=== PATIENT | female | born 1970 | race Two or more races ===

== ENCOUNTER 2022-06-22 01:54 | Inpatient (IN) | payer OTHER, MEDICAID ==
[~2022-06-22] VITALS: Ht 160 cm; Wt 129.3 kg
[2022-06-22] MEDS ORDERED: ALBUTEROL SULFATE/IPRATROPIU 3 ML SOL IH ONE ×2 (02:00→03:05)
--- NOTE | 2022-06-22 02:07 | NUR ---
LAB AT BEDSIDE
--- NOTE | 2022-06-22 02:07 | NUR ---
RAD AT BEDSIDE
--- NOTE | 2022-06-22 02:08 | NUR ---
SWABS COLLECTED AND HANDED TO LAB
[2022-06-22 02:15] LABS: BASOPHILS # (AUTO) 0.1 K/uL (0.00-0.22); BASOPHILS % (AUTO) 0.8 % (0.0-2.0); EOSINOPHILS # (AUTO) 0.1 K/uL (0-0.4); HEMATOCRIT 43.9 % (36-48); HEMOGLOBIN 14.3 g/dL (12.0-16.0); LYMPHOCYTES # (AUTO) 2.7 K/uL (2.5-16.5); LYMPHOCYTES % (AUTO) 18.4 % (20.5-51.1); MEAN CORPUSCULAR HEMOGLOBIN 27 pg (27-31); MEAN CORPUSCULAR HGB CONC 33 g/dL (33-37); MEAN CORPUSCULAR VOLUME 82.9 fL (80-94); MONOCYTES # (AUTO) 0.7 K/uL (0.8-1.0); MONOCYTES % (AUTO) 4.6 % (1.7-9.3); NEUTROPHILS # (AUTO) 11.2 K/uL (1.8-7.7); NEUTROPHILS % (AUTO) 75.2 % (42.2-75.2); PLATELET COUNT (AUTO) 334 K/uL (140-450); RED CELL DISTRIBUTION WIDTH 18.1 % (11.6-13.7); WHITE BLOOD COUNT (AUTO) 14.9 K/uL (4.8-10.8)
[2022-06-22 02:16] VITALS: BP 178/111
--- NOTE | 2022-06-22 02:26 | NUR ---
RT AT BEDSIDE
[2022-06-22 02:36] LABS: ALBUMIN 3.4 g/dL (3.4-5.0); ANION GAP 17.1 (8-16); CARBON DIOXIDE 23.5 mmol/L (21-32); CREATININE 1.3 mg/dL (0.6-1.3); POTASSIUM 3.6 mmol/L (3.5-5.1); TOTAL BILIRUBIN 0.5 mg/dL (0.0-1.0)
--- NOTE | 2022-06-22 02:58 | NUR ---
51/F BIB FROM [facility] C/C SOB AND CP X1 HR. +CONGESTION +COUGH PMHX: ASTHMA, CAD, CHF, GERD, GLAUCOMA, HTN, HYPERCHOLESTEROLEMIA, HYPOTHYROIDISM, MAJOR DEPRESSION, OBSTRUCTIVE SLEEP APNEA ALLERGIES: BACTRIM, DRONABINOL, DULOXETINE, MORPHINE, SULFAMETHOXAZOLE, THRIMETHOPRIM, ZOFRAN, AGATA, CYMBALTA
[2022-06-22] MEDS ORDERED: AZITHROMYCIN 500 MG in DEXTROSE 5% 250 ML IV ONE (03:05)
[2022-06-22] MEDS ORDERED: methylPREDNISolone SS 125 MG/2 ML VIAL IVP ONE (03:05)
[2022-06-22] MEDS ORDERED: cefTRIAXone 1,000 MG VIAL ONE (03:10)
--- NOTE | 2022-06-22 03:25 | NUR ---
RT AT BEDSIDE
--- NOTE | 2022-06-22 03:25 | NUR ---
PATIENT REMOVED FROM OXYGEN. CURRENTLY ROOM AIR SAT 95%. ERMHien NIA MADE AWARE.
[2022-06-22] MEDS ORDERED: AZITHROMYCIN 500 MG INJ VIAL IV ONE (03:30)
--- NOTE | 2022-06-22 03:44 | NUR ---
PT AMBULATED TO RR
--- NOTE | 2022-06-22 04:02 | NUR ---
PATIENT STATED THAT SHE FELT NAUSEATED AFTER SPITTING UP CONGESTION SECREATIONS. MALVIN KRAMER MADE AWARE.
[2022-06-22] MEDS ORDERED: METOCLOPRAMIDE 10 MG/2 ML INJ VIAL IVP ONE (04:05)
--- NOTE | 2022-06-22 04:05 | NUR ---
MED REC COMPLETED
--- NOTE | 2022-06-22 04:35 | NUR ---
PT TO BED 9
--- NOTE | 2022-06-22 05:41 | NUR ---
Patient will be admitted to care of MD GREGORIO. Admited to TELEMETRY. Will go to room 104A. Belongings list completed. Report to NESSA THOMAS. TRANSFER OF CARE
--- NOTE | 2022-06-22 06:00 | NUR ---
RECEIVED PATIENT FROM ER VIA YOLANDA, PT IS AOX4, NO DISTRESS NOTED
[2022-06-22] MEDS ORDERED: POTASSIUM CHLORIDE 10 MEQ TABER PO PRN (07:45)
[2022-06-22] MEDS ORDERED: DOCUSATE SODIUM 100 MG GELCAP PO PRN (07:45)
[2022-06-22] MEDS ORDERED: ZOLPIDEM 5 MG TAB PO PRN (07:45)
[2022-06-22] MEDS ORDERED: guaiFENesin DM 200/20 MG-10 ML 10 ML UDC PO PRN (07:45)
[2022-06-22] MEDS ORDERED: ALBUTEROL SULFATE/IPRATROPIU 3 ML SOL IH PRN (07:55)
[2022-06-22 08:00] VITALS: BP 115/67
[2022-06-22 08:50] LABS: ANION GAP 15.3 (8-16); CARBON DIOXIDE 24.6 mmol/L (21-32); CREATININE 1.1 mg/dL (0.6-1.3); POTASSIUM 3.9 mmol/L (3.5-5.1)
[2022-06-22 08:52] LABS: BASOPHILS % (AUTO) 0.3 % (0.0-2.0); EOSINOPHILS % (AUTO) 0.1 % (0.0-4.0); HEMATOCRIT 40.5 % (36-48); HEMOGLOBIN 13.2 g/dL (12.0-16.0); LYMPHOCYTES # (AUTO) 0.6 K/uL (2.5-16.5); LYMPHOCYTES % (AUTO) 4.4 % (20.5-51.1); MEAN CORPUSCULAR HEMOGLOBIN 27 pg (27-31); MEAN CORPUSCULAR HGB CONC 33 g/dL (33-37); MEAN CORPUSCULAR VOLUME 82.7 fL (80-94); MONOCYTES # (AUTO) 0.1 K/uL (0.8-1.0); MONOCYTES % (AUTO) 0.8 % (1.7-9.3); NEUTROPHILS # (AUTO) 12.9 K/uL (1.8-7.7); NEUTROPHILS % (AUTO) 94.4 % (42.2-75.2); PLATELET COUNT (AUTO) 274 K/uL (140-450); RED CELL DISTRIBUTION WIDTH 17.9 % (11.6-13.7); WHITE BLOOD COUNT (AUTO) 13.7 K/uL (4.8-10.8)
[2022-06-22 09:04] LABS: CHOL/HDL RATIO 2.1 (1-4.5); MAGNESIUM 1.8 mg/dL (1.8-2.4); PHOSPHORUS 3.6 mg/dL (2.5-4.9); THYROID STIMULATING HORMONE 1.87 uIU/mL (0.34-3.74)
[2022-06-22] MEDS: FUROSEMIDE 40 MG/4 ML VIAL IVP SCH (09:12)
[2022-06-22] MEDS: ACETAMINOPHEN 325 MG TAB PO PRN ×2 (09:19→22:07)
[2022-06-22 09:27] LABS: ANION GAP 17.8 (8-16); CARBON DIOXIDE 22.7 mmol/L (21-32); CREATININE 1.3 mg/dL (0.6-1.3); POTASSIUM 3.5 mmol/L (3.5-5.1)
--- NOTE | 2022-06-22 10:32 | NUR ---
PATIENT HAS BEEN SCREENED AND CATEGORIZED MODERATE NUTRITION RISK. PATIENT WILL BE SEEN WITHIN 3-5 DAYS OF ADMISSION. REVIEWED BY SUKI BELLO RD
[2022-06-22] MEDS ORDERED: METOCLOPRAMIDE 10 MG/2 ML INJ VIAL IVP PRN (11:55)
[2022-06-22] MEDS ORDERED: ISOSORBIDE MONONITRATE 30 MG TABER PO SCH (11:55)
[2022-06-22] MEDS ORDERED: carvediloL 12.5 MG TAB PO SCH (11:55)
[2022-06-22] MEDS: ECOTRIN 81 MG TABEC PO SCH (11:55)
[2022-06-22 12:00] VITALS: BP 133/78
[2022-06-22] MEDS ORDERED: hydrALAZINE 10 MG TAB PO SCH (13:00)
[2022-06-22 16:00] VITALS: BP 108/61
[2022-06-22] MEDS ORDERED: hydrALAZINE 25 MG TAB PO PRN (16:25)
--- NOTE | 2022-06-22 17:41 | NUR ---
P.T. NOTES P.T. EVAL COMPLETED; REFER TO EVAL FOR DETAILS.
[2022-06-22 19:00] LABS: APPEARANCE,URINE SL CLOUDY (CLEAR); BILIRUBIN,URINE NEGATIVE (NEGATIVE); BLOOD, URINE TRACE-I (NEGATIVE); COLOR,URINE YELLOW (YELLOW); LEUKOCYTE ESTERASE ,URINE 2+ (NEGATIVE); NITRITE, URINE NEGATIVE (NEGATIVE); PH,URINE 7.5 (5.0-9.0); UGLUCOSE NEGATIVE (NEGATIVE)
[2022-06-22 19:22] LABS: RBC,URINE 0-5 /HPF (0-5)
[2022-06-22 19:23] LABS: CALCIUM OXALATE CRYSTALS,UR 0-10 /HPF (None Seen)
--- NOTE | 2022-06-22 19:26 | NUR ---
ENDORSE PATIENT IN STABLE CONDITION TO PM SHIFT NURSE WITH NO ACUTE DISTRESS NOTED. PATIENT ADMIT FOR CHEST PAIN/TIGHTNESS WITH SOB, DIAGNOSIS WITH PNA WITH ASTHMA EXACERBATION. PIV AT R. AC SALINE LOCK.
[2022-06-22 19:29] LABS: BARBITURATE, URINE NEGATIVE ng/ml (NEG <=200); BENZODIAZEPINE, URINE NEGATIVE ng/mL (NEG <=200); CANNABINOID, URINE NEGATIVE ng/mL (NEG <=50); COCAINE, URINE NEGATIVE ng/mL (NEG <=300); OPIATE, URINE NEGATIVE ng/mL (NEG <=2000); PHENCYCLIDINE SCREEN,URINE NEGATIVE ng/mL (NEG <=25)
--- NOTE | 2022-06-22 19:30 | NUR ---
RECEIVED PATIENT LYING ON THE BED, PATIENT IS ALERT AND ORIENTED X4, NO SIGNS OF PAIN NOTED, NO SIGNS OF DISTRESS, IV ACCESS SITE ON RIGHT AC, FLUSH WITHOUT RESISTANCE, CALL LIGHT WITHIN REACH.
--- NOTE | 2022-06-22 19:53 | NUR ---
RECEIVED REPORT FROM AM SHIFT. PATIENT WAS SEEN AND ASSESSED. PATIENT IS ON ROOM AIR WITH SPO2 95%. NOTICED ADEQUATE BILATERAL CHEST RISE AND FALL. PATIENT IS IN NO RESPIRATORY DISTRESS AT THIS TIME. BILATERAL BREATH SOUNDS ON AUSCULTATION; UPPER LOBES: CLEAR AND LOWER LOBES: CLEAR. PRN TX NOT INDICATED AT THIS TIME. PATIENT WAS INFORMED TO CALL RN OR RT WHEN EXPERIENCING SOB OR WHEN WHEEZING. WILL CONTINUE TO MONITOR PATIENT.
[2022-06-22 20:00] VITALS: BP 125/72
[2022-06-22] MEDS ORDERED: cefTRIAXone 2,000 MG in DEXTROSE 5% 100 ML IV SCH (20:00)
[2022-06-22] MEDS: carvediloL 6.25 MG TAB PO SCH (20:23)
[2022-06-22] MEDS: VALSARTAN 80 MG TAB PO SCH (20:24)
[2022-06-22] MEDS: GABAPENTIN 300 MG CAP PO SCH (20:24)
[2022-06-22] MEDS: buPROPion 150 MG TABER PO SCH (20:29)
[2022-06-22] MEDS: APIXABAN 2.5 MG TAB PO SCH (20:29)
[2022-06-22] MEDS ORDERED: AZITHROMYCIN 500 MG in DEXTROSE 5% 250 ML IV SCH (21:00)
--- NOTE | 2022-06-22 21:50 | NUR ---
DUE MEDICATIONS GIVEN ORDERED. PATIENT IS SITTING AT THE EDGE OF BED, CALL LIGHT WITHIN REACH, BED IN LOW AND LOCKED POSITION.
[2022-06-23] VITALS: BP 133/70
--- NOTE | 2022-06-23 02:10 | NUR ---
CHECK ON PATIENT. PATIENT IS AWAKE, ON HER PHONE, DENIES PAIN, DENIES CHEST PAIN, DENIES SOB. CALL LIGHT WITHIN REACH. BED IN LOCKED AND LOW POSITION. WILL CONTINUE TO MONITOR THE PATIENT.
[2022-06-23 04:00] VITALS: BP 96/57
--- NOTE | 2022-06-23 04:10 | NUR ---
VITALS T 97, P 63, BP 96/57, RESP 17 AND O2 SATS 97% ON ROOM AIR, PATIENT IS AWAKE, DENIES CHEST PAIN, NO SIGNS OF DISTRESS NOTED. CALL LIGHT WITHIN REACH. WILL CONTINUE TO MONITOR THE PATIENT.
[2022-06-23 06:42] LABS: BASOPHILS % (AUTO) 0.4 % (0.0-2.0); EOSINOPHILS # (AUTO) 0.1 K/uL (0-0.4); EOSINOPHILS % (AUTO) 1.3 % (0.0-4.0); HEMATOCRIT 34.9 % (36-48); HEMOGLOBIN 11.6 g/dL (12.0-16.0); LYMPHOCYTES # (AUTO) 2.4 K/uL (2.5-16.5); LYMPHOCYTES % (AUTO) 22.4 % (20.5-51.1); MEAN CORPUSCULAR HEMOGLOBIN 28 pg (27-31); MEAN CORPUSCULAR HGB CONC 33 g/dL (33-37); MONOCYTES # (AUTO) 0.7 K/uL (0.8-1.0); MONOCYTES % (AUTO) 6.7 % (1.7-9.3); NEUTROPHILS # (AUTO) 7.3 K/uL (1.8-7.7); NEUTROPHILS % (AUTO) 69.2 % (42.2-75.2); PLATELET COUNT (AUTO) 242 K/uL (140-450); RED BLOOD CELL COUNT(AUTO) 4.21 MIL/uL (4.20-5.40); RED CELL DISTRIBUTION WIDTH 18.1 % (11.6-13.7); WHITE BLOOD COUNT (AUTO) 10.6 K/uL (4.8-10.8)
[2022-06-23 06:49] LABS: CARBON DIOXIDE 29.1 mmol/L (21-32); CREATININE 1.1 mg/dL (0.6-1.3); POTASSIUM 4.1 mmol/L (3.5-5.1)
--- NOTE | 2022-06-23 07:13 | NUR ---
ENDORSED PATIENT TO NURSE KARENA FOR CONTINUITY OF CARE. NEEDS MET THROUGHOUT THE SHIFT. PATIENT IS STABLE.
--- NOTE | 2022-06-23 07:35 | NUR ---
CHECKED ON PT. SATURATION WAS 99% ON ROOM AIR. NO TREATMENT WAS GIVEN.
[2022-06-23 08:00] VITALS: BP 126/69
[2022-06-23] MEDS ORDERED: ATORVASTATIN 20 MG TAB PO SCH (09:00)
[2022-06-23] MEDS: APIXABAN 2.5 MG TAB PO SCH (09:00)
[2022-06-23] MEDS ORDERED: SPIRONOLACTONE 25 MG TAB PO SCH (09:00)
[2022-06-23] MEDS: carvediloL 6.25 MG TAB PO SCH (09:45)
[2022-06-23] MEDS: GABAPENTIN 300 MG CAP PO SCH (09:46)
[2022-06-23] MEDS: buPROPion 150 MG TABER PO SCH (09:47)
[2022-06-23] MEDS: VALSARTAN 80 MG TAB PO SCH (09:48)
[2022-06-23] MEDS: FUROSEMIDE 40 MG/4 ML VIAL IVP SCH (09:50)
[2022-06-23] MEDS: ECOTRIN 81 MG TABEC PO SCH (09:54)
--- NOTE | 2022-06-23 11:35 | NUR ---
VERIFIED ELIQUIS 5MG PO WITH KARENA SZYMANSKI AND PATIENT
[2022-06-23 12:00] VITALS: BP 122/44
[2022-06-23] MEDS ORDERED: VALS80TA2 PO (15:28)
[2022-06-23] MEDS ORDERED: SPIR25TA PO (15:28)
[2022-06-23] MEDS ORDERED: CARV6.252 PO (15:28)
[2022-06-23] MEDS ORDERED: APIX2.5 PO (15:28)
[2022-06-23] MEDS ORDERED: BUPR150T41 PO (15:28)
[2022-06-23] MEDS ORDERED: ATOR20TA40 PO (15:28)
[2022-06-23] MEDS ORDERED: FURO-570 PO (15:29)
--- NOTE | 2022-06-23 15:34 | NUR ---
PHYSICAL THERAPY CO-SIGN The Physical Therapy Progress Notes documented by [facility] have been reviewed. Reviewed/Co-Signed by: Mariam Duncan PT Documentation Done by:VAISHNAVI JEFFREY [employer] AUTHORING SPECIALIST Addendum: 06/23/22 at 1535 by Mariam Duncan PT Amended: Links added.
[2022-06-23 15:54] VITALS: BP 109/75
== END 2022-06-23 16:55 | disposition home or self-care (01) | DRG 871 ==
LOC: MED 01:54 → MTU 04:50
PROVIDERS: ADMIT Student in an Organized Health Care Education/Training Program; ATTEND Student in an Organized Health Care Education/Training Program
DX: A41.9 Sepsis, unspecified organism (principal); I21.A1 Myocardial infarction type 2; I50.23 Acute on chronic systolic (congestive) heart failure; J18.9 Pneumonia, unspecified organism; I42.8 Other cardiomyopathies; I11.0 Hypertensive heart disease with heart failure; Z20.822 Contact with and (suspected) exposure to COVID-19; E78.5 Hyperlipidemia, unspecified; E11.9 Type 2 diabetes mellitus without complications; I48.91 Unspecified atrial fibrillation; E03.9 Hypothyroidism, unspecified; Z88.5 Allergy status to narcotic agent; Z88.2 Allergy status to sulfonamides; Z88.8 Allergy status to other drugs, medicaments and biological substances; Z90.49 Acquired absence of other specified parts of digestive tract; Z98.84 Bariatric surgery status; J45.909 Unspecified asthma, uncomplicated
CPT/HCPCS: 36415; 71045; 80048; 80053; 80305; 81001; 83036; 83605; 83735; 83880; 84100; 84443; 84484; 85025; 87040; 87086; 96365; 96375; 97112; 97116; 97530; 99285; J0456; J0696; J1940; J2765; J2930; J7060; Q0092